=== PATIENT | male | born 2000 | race Caucasian/White ===

== ENCOUNTER 2018-02-06 15:26 | Emergency (ER) | payer BC, MEDICAID ==
[~2018-02-06] VITALS: Ht 180.3 cm; Wt 77.1 kg
[2018-02-06 15:29] VITALS: BP 117/57
[2018-02-06 15:55] VITALS: BP 117/57
== END 2018-02-06 15:55 | disposition home or self-care (01) ==
LOC: MED 15:26
DX: F11.90 Opioid use, unspecified, uncomplicated (principal); Z02.89 Encounter for other administrative examinations
CPT/HCPCS: 99283

== ENCOUNTER 2021-11-13 09:28 | Emergency (ER) | payer BC, MEDICAID ==
[~2021-11-13] VITALS: Ht 182.9 cm; Wt 81.6 kg
--- NOTE | 2021-11-13 09:30 | NUR ---
PT JERARDO HOLLIS, VIA GURNEY TO BED 08.
[2021-11-13 09:40] VITALS: BP 88/51
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
--- NOTE | 2021-11-13 10:27 | NUR ---
CALLED [facility] LEFT ON HOLD BY DISPATCH
[2021-11-13] MEDS ORDERED: NACL 0.9% 1,000 ML IV ONE (10:40)
--- NOTE | 2021-11-13 10:50 | NUR ---
2ND CALLED [facility] LEFT ON HOLD BY DISPATCH
[2021-11-13 11:10] LABS: BASOPHILS % (AUTO) 0.1 % (0.0-2.0); HEMOGLOBIN 14.4 g/dL (12.0-18.0); MONOCYTES # (AUTO) 3.1 K/uL (0.8-1.0); MONOCYTES % (AUTO) 12.3 % (1.7-9.3); NEUTROPHILS # (AUTO) 21.2 K/uL (1.8-7.7)
[2021-11-13 11:16] LABS: ACETAMINOPHEN 0.8 ug/ml (10-30); ALBUMIN 3.2 g/dL (3.4-5.0); ANION GAP 13.3 (8-16); ASPARTATE AMINOTRANSFERASE 60 U/L (15-37); CHLORIDE 111 mmol/L (98-107); CREATININE 1.6 mg/dL (0.6-1.3); GFR ARICAN-AMERICAN 69 mL/min (>90); GLUCOSE 86 mg/dL (74-106); POTASSIUM 3.3 mmol/L (3.5-5.1); SODIUM SERUM 146 mmol/L (136-145); TOTAL BILIRUBIN 0.4 mg/dL (0.0-1.0); UREA NITROGEN, BLOOD 16 mg/dL (7-18)
[2021-11-13 11:18] LABS: HEMATOCRIT 43.9 % (36-52); LYMPHOCYTES # (AUTO) 0.6 K/uL (2.0-11.5); LYMPHOCYTES % (AUTO) 2.4 % (20.5-51.1); MEAN CORPUSCULAR HEMOGLOBIN 30 pg (27-31); MEAN CORPUSCULAR HGB CONC 33 g/dL (33-37); MEAN CORPUSCULAR VOLUME 90.3 fL (80-94); NEUTROPHILS % (AUTO) 85.2 % (42.2-75.2); PLATELET COUNT (AUTO) 305 K/uL (140-450); RED BLOOD CELL COUNT(AUTO) 4.86 MIL/uL (4.20-6.10); RED CELL DISTRIBUTION WIDTH 13.9 % (11.6-13.7); SALICYLATE < 2.8 mg/dL (2.8-20.0)
[2021-11-13 11:27] LABS: WHITE BLOOD COUNT (AUTO) 24.9 K/uL (4.8-10.8)
[2021-11-13] MEDS ORDERED: POTASSIUM CHLORIDE 10 MEQ TABER PO ONE (11:55)
[2021-11-13] MEDS ORDERED: cefTRIAXone 1,000 MG VIAL ONE (12:23)
[2021-11-13] MEDS: NACL 0.9% 1,000 ML IV SCH ×2 (13:34→13:36)
[2021-11-13 13:36] VITALS: BP 96/43
--- NOTE | 2021-11-13 13:36 | NUR ---
Patient does not wish to proceed with medical care recommended by . Patient given information related to possible complications, up to and including , which could occur as a result of leaving hospital at this time. Patient verbalizes understanding of risks involved leaving against medical advice. Patient has signed AMA form.
== END 2021-11-13 13:36 | disposition left against medical advice (07) ==
LOC: MED 09:28
DX: T40.411A Poisoning by fentanyl or fentanyl analogs, accidental (unintentional), initial encounter (principal); R65.20 Severe sepsis without septic shock; Y92.89 Other specified places as the place of occurrence of the external cause
CPT/HCPCS: 36415; 80053; 83605; 85025; 87040; 93005; 96361; 96365; 99291; G0480; G0482; J0696; J7030; 99284